=== PATIENT | male | born 1985 | race Caucasian/White ===

== ENCOUNTER 2016-11-01 19:23 | Emergency (ER) | payer SELFPAY ==
[2016-11-01 19:33] VITALS: BP 161/90; BMI 24.3
[2016-11-01] MEDS ORDERED: TORADOL 60 MG VIAL IM ONE (20:07)
--- NOTE | 2016-11-01 20:07 | DR.GENAD ---
HPI - PCP Primary Care Physician: NFD - HPI Comment HPI Comment: TOOTHACHE TIMES 2 WEEKS. SAW DENTIST. GIVEN AMOXICILLIN. NOT TAKING PRESCRIBE. NO FEVER. PENDING TO SEE [facility] IN [place] FOR POSSIBLE EXTRACTION. - Complaint/Symptoms Chief Complaint Doctors Comments: TOOTHCHE. Chief Complaint:: TOOTHACHE, Self Treatment fo Chief Complaint: HAS SEEN DENTIST GIVEN AMOXICILLIN AND HYDROCODONE, 0N 10/25/16 - Nurses notes reviewed Nurses Notes Review: Yes - Source History Provided: Patient - Mode of Arrival Mode of Arrival: Ambulatory - Timing Onset of Chief Complaint: 10/19/15 Came on: Suddenly - Duration Duration: Constant Duration: Days - Severity Severity: Moderate PMH - PMH Past Medical History: No Past Surgical History: Yes Surgical History: Ortho Surgery Past Surgical History Comment: RIGHT WRIST - Family History History of Family Medical Conditions: No - Social History Does patient currently use any type of tobacco product: Yes Have you used tobacco products in the last 12 months: Yes Type of Tobacco Use: Cigarettes Does any household member use tobacco: No Alcohol Use: None Do you use any recreational Drugs:: No Lives With: Significant Other Lives Where: Home - infectious screening In the last 2 months have you had wt loss of >10#?: NO Have you had fever, night sweats or hemotysis?: No Have you traveled outside the country in the last 6 months?: No Isolation: Standard ROS - Review of Systems Constitutional: No Symptoms Reported Eyes: No Symptoms Reported ENTM: Mouth Pain (DENTAL AND GUM PAIN) Respiratoy: No Symptoms Reported Cardiovascular: No Symptoms Reported Gastrointestinal/Abdominal: No Symptoms Reported Genitourinary: No Symptoms Reported Neurological: No Symptoms Reported Musculoskeletal: No Symptoms Reported Integumentary: No Symptoms Reported Hematologic/Lymphatic: No Symptoms Reported All Other Systems: Reviewed and Negative PE - Vital Signs Vitals: Temperature 98.0 F Pulse Rate 90 Respiratory Rate 16 Blood Pressure 161/90 O2 Sat by Pulse Oximetry 100 - General Limitations: No Limitations General Appearance: Alert - Head Head Exam: Normal Inspection - Eyes Eye exam: Normal Appearance - ENT ENT Exam: Normal External Ear Exam External Ear Exam: Normal External Inspection TM/Canal Exam: Bilateral Normal Nose Exam: Normal Nose Exam Mouth Exam: Other (DENTAL CARIES, GUM INLAME LEFT UPPER 1ST AND 3RD MOLARS AND RIGHT UPPER 3RD MOLAR. SAME TEETH WITH DENTAL CAVITIES WELL.) Throat Exam: Normal Inspection - Neck Neck Exam: Trachea Midline - Chest Chest Inspection: Symmetric Chest Wall Rise - Respiratory Respiratory Exam: Normal Lung Sounds Bilat Respiratory Exam: Bilateral Clear to Auscultation - Cardiovascular Cardiovascular Exam: Regular Rate, Normal Rhythm, Normal Heart Sounds - Abdominal Exam Abdominal Exam: Normal Inspection - Extremities Extremities Exam: Normal Inspection - Back Back Exam: Normal Inspection - Psychiatric Psychiatric Exam: Normal Affect, Normal Mood - Skin Skin Exam: Normal Color MDM - Differential Diagnosis Differential Diagnosis: DENTAL PAIN, GINGIVITIS Course - Treatment Treatment: SEE ORDERS - Reevaluation 1st: Improved (WITH IM TORADOL IN ED.) - Education/Counseling Education/Counseling: Patient, Education Educated On: Diagnosis, Needs for Follow Up - Diagnosis Discharge Problem: Pain due to dental caries, Gingivitis - Discharge Plan Disposition: 01 HOME, SELF-CARE Condition: Stable Prescriptions: Meloxicam [Mobic Tab 15 mg] 15 mg PO DAILY #15 tab - Follow ups/Referrals Follow ups/Referrals: NFD,None [Primary Care Provider] - 3 days - Instructions Instructions: Dental Pain, Gingivitis Additional Instructions: RETURN TO ED IF WORSE. CONTINUE TO TAKE AMOXICILLIN PRESCRIBE. FOLLOW UP WITH YOUR DENTIST THIS WEEK.
[2016-11-01] MEDS ORDERED: TORADOL 60 MG VIAL ONE (20:08)
== END 2016-11-01 20:54 | disposition home or self-care (01) ==
LOC: ER 19:23
DX: K02.9 Dental caries, unspecified (principal); K05.10 Chronic gingivitis, plaque induced
CPT/HCPCS: 96372; 99282; J1885